=== PATIENT | male | born 1940 | race Caucasian/White ===

== ENCOUNTER 2017-09-23 10:30 | Outpatient (RCR) | payer MEDICARE, OTHER ==
[2015-11-26 16:51] VITALS: BP 116/52
[~2017-09-23 10:30] MED LIST: ASPIRIN E.C. 8181 MG PO; CALCIUM600 M1 PO; FLOMAX 0.40.4 MG/CAP PO; IBUPRIN200 MG PO; JANUMET 500 MG-1 TAB PO; LANTUS PEN100 U/ML SQ; MULTIPLE VITAMI1 CAP PO; NOVOLOG FLEX100 U/ML SQ; SIMVASTATIN40 MG PO; SYSTANE ULTRA 010 ML OP; VICTOZA6 MG/ML SC; VITAMIN C500 MG PO; ZOFRAN ODT8 MG PO
== END 2017-09-23 11:00 ==
LOC: PT 10:30
DX: R26.89 Other abnormalities of gait and mobility (principal); R29.6 Repeated falls; R42 Dizziness and giddiness
CPT/HCPCS: G8978-GP; G8979-GP

== ENCOUNTER 2020-03-17 09:00 | Outpatient (RCR) | payer MEDICARE, OTHER ==
[2015-11-26 16:51] VITALS: BP 116/52
== END 2020-03-29 11:00 | disposition still patient (30) ==
LOC: CARDREHAB 09:00
DX: Z48.812 Encounter for surgical aftercare following surgery on the circulatory system (principal); Z95.5 Presence of coronary angioplasty implant and graft

== ENCOUNTER 2020-11-06 11:10 | Outpatient (RCR) | payer MEDICARE, OTHER ==
[2015-11-26 16:51] VITALS: BP 116/52
== END 2021-02-04 | disposition still patient (30) ==
LOC: PT
DX: S32.402A Unspecified fracture of left acetabulum, initial encounter for closed fracture (principal); D62 Acute posthemorrhagic anemia

== ENCOUNTER → 2020-11-07 | Outpatient (CLI) | payer MEDICARE, OTHER ==
[2015-11-26 16:51] VITALS: BP 116/52
[2020-11-07 10:38] LABS: POTASSIUM 3.1 mmol/L (3.5-5.1)
[2020-11-07 10:39] LABS: CALCIUM 8.5 mg/dL (8.3-10.5)
== END ==
LOC: LAB 10:12
PROVIDERS: Family Medicine
DX: E87.6 Hypokalemia (principal)